=== PATIENT | male | born 1985 | race Caucasian/White ===

== ENCOUNTER 2016-09-04 13:06 | Day surgery (SDC) | payer BC ==
[~2016-09-04 13:06] MED LIST: DIPHENHYDRAMINE HCL 50 MG/ML VIAL ONE; EPINEPHRINE INJ 1 MG/10 ML DISP.SYRIN ONE; FLUMAZENIL INJ 0.5 MG/5 ML VIAL IV ONE; GLUCAGON,HUMAN RECOMB 1 MG INJ ONE; MIDAZOLAM 2 MG/2 ML INJ ONE; NALOXONE HCL INJ/PF 0.4 MG/1 ML SDV ONE; ONDANSETRON HCL INJ/PF 4 MG/2 ML SDV ONE; PROMETHAZINE HCL INJ 25 MG/1 ML VIAL ONE
[2016-09-04] MEDS: MIDAZOLAM 2 MG/2 ML INJ ONE ×2 (13:32→13:39)
[2016-09-04] MEDS: FENTANYL CITRATE INJ/PF 100 MCG/2 ML AMPUL ONE ×3 (13:34→13:41)
--- NOTE | 2016-09-04 13:46 | Operative Report ---
Operative Report DATE OF SURGERY: 09/04/16 Operative Report: The risks benefits and alternatives of the procedure explained to the patient in detail and informed consent is obtained that GIF Olympus video scope was inserted into the patient's mouth and hypopharynx the esophagus is identified intubated and insufflated the scope was then advanced through the esophagus stomach and duodenum retroflexion maneuver is done the esophagus stomach and first and second portions of the duodenum examined PREOPERATIVE DIAGNOSIS: Dysphagia POSTOPERATIVE DIAGNOSIS: Esophageal rings and furrows. Esophageal ulcer, stricture. Hiatal hernia. Gastritis OPERATION: EGD with biopsy SURGEON: SU YEE ANESTHESIA: Moderate Sedation - 4 mg of Versed, 125 g of fentanyl TISSUE REMOVED OR ALTERED: Gastric specimens, esophageal specimens COMPLICATIONS: None. ESTIMATED BLOOD LOSS: none. INTRAOPERATIVE FINDINGS: Described above. PROCEDURE: Patient tolerated the procedure well. No immediate postprocedure complications are noted. Patient is discharged in good condition. Discharge date 09/04/2016 Discharge diet: Regular. Discharge activity: Regular. Follow-up in 2-3 weeks We'll await on biopsies Patient is instructed to call the office or proceed to the emergency room after any further problems or questions
[2016-09-04 15:01] VITALS: BP 118/75
== END 2016-09-04 15:00 | disposition home or self-care (01) ==
LOC: END 13:06
PROVIDERS: ATTEND Internal Medicine Gastroenterology
PROC: 0DB58ZX Excision of Esophagus, Via Natural or Artificial Opening Endoscopic, Diagnostic (ICD-10-PCS; 2016-09-04)
PROC: 0DB68ZX Excision of Stomach, Via Natural or Artificial Opening Endoscopic, Diagnostic (ICD-10-PCS; principal; 2016-09-04 13:30)
DX: K22.10 Ulcer of esophagus without bleeding (principal); K22.2 Esophageal obstruction; R13.10 Dysphagia, unspecified; K21.9 Gastro-esophageal reflux disease without esophagitis; K44.9 Diaphragmatic hernia without obstruction or gangrene; K29.50 Unspecified chronic gastritis without bleeding; Z79.899 Other long term (current) drug therapy; Z88.6 Allergy status to analgesic agent
CPT/HCPCS: 43239; 88342 ×2; 88305 ×2; J2250; J3010; J0171; J1200; J1610; J2310; J2405; J2550; J3490

== ENCOUNTER → 2016-12-05 | Outpatient (CLI) | payer BC ==
[2016-12-09 07:08] LABS: ROCKY MTN SPOTTED FEV IGG EIA Negative (Negative)
[2016-12-09 11:39] LABS: F026-IGE PORK <0.10 kU/L (Class 0); F027-IGE BEEF <0.10 kU/L (Class 0)
[2016-12-09 11:43] LABS: F083-IGE CHICKEN MEAT <0.10 kU/L (Class 0)
== END ==
LOC: OD 09:18
PROVIDERS: ATTEND Student in an Organized Health Care Education/Training Program
DX: T14.8 Other injury of unspecified body region (principal); W57.XXXA Bitten or stung by nonvenomous insect and other nonvenomous arthropods, initial encounter; Z91.018 Allergy to other foods
CPT/HCPCS: 36415; 86003; 86757

== ENCOUNTER → 2017-01-15 | Outpatient (CLI) | payer BC ==
[2017-01-17 09:47] LABS: ROCKY MTN SPOTTED FEV IGG EIA Negative (Negative)
== END ==
LOC: OD 09:44
PROVIDERS: ATTEND Student in an Organized Health Care Education/Training Program
DX: A77.0 Spotted fever due to Rickettsia rickettsii (principal)
CPT/HCPCS: 36415; 86757

== ENCOUNTER 2018-05-26 12:06 | Emergency (ER) | payer BC ==
[2018-05-26] MEDS ORDERED: ONDANSETRON 4 MG TAB.RAPDIS PO ONE (12:12)
[2018-05-26 12:29] LABS: ABSOLUTE BASOPHILS # (AUTO) 0.1 10^3/uL (0.0-0.2); ABSOLUTE EOSINOPHILS # (AUTO) 0.2 10^3/uL (0.0-0.6); ABSOLUTE LYMPHOCYTES (AUTO) 5.2 10^3/uL (0.5-4.7); ABSOLUTE NEUT (AUTO) 4.7 10^3/uL (1.7-8.2); BASOPHILS % (AUTO) 0.7 % (0-2); EOSINOPHILS % (AUTO) 1.5 % (0-6); HEMATOCRIT 45.5 % (37.9-51.0); HEMOGLOBIN 15.7 g/dL (13.5-17.0); LYMPHOCYTES % (AUTO) 46.9 % (13-45); MEAN CORPUSCULAR HEMOGLOBIN 29.3 pg (27.0-33.4); MEAN CORPUSCULAR HGB CONC 34.5 g/dL (32.0-36.0); MEAN CORPUSCULAR VOLUME 85 fl (80-97); MONOCYTES % (AUTO) 8.6 % (3-13); PLATELET COUNT 315 10^3/uL (150-450); RED BLOOD COUNT 5.36 10^6/uL (4.35-5.55); RED CELL DISTRIBUTION WIDTH 13.2 % (11.5-14.0); SEGMENTED NEUTROPHILS % (AUTO) 42.3 % (42-78); TOTAL CELLS COUNTED % (AUTO) 100 %; WHITE BLOOD COUNT 11.1 10^3/uL (4.0-10.5)
--- NOTE | 2018-05-26 12:38 | ER Document Report ---
ED General - General Chief Complaint: Syncope Stated Complaint: POSSIBLE SYNCOPE Time Seen by Provider: 05/26/18 12:10 Mode of Arrival: Ambulatory Information source: Patient Notes: Patient says that he was fixing his belt when he pulled his nail back. Had severe pain in the 3rd digit on the L hand. Began feeling nauseated. Was noticed to be pale, diaphoretic, and lightheaded. Near syncopal episode. Patient denies any medical problems. Not on any medications. TRAVEL OUTSIDE OF THE [place] IN LAST 30 DAYS: No - HPI Onset: Just prior to arrival Onset/Duration: Sudden Quality of pain: Sharp Severity: Mild Associated symptoms: Nausea Exacerbated by: Denies Relieved by: Denies Similar symptoms previously: No Recently seen / treated by doctor: No - Related Data Allergies/Adverse Reactions: Beef Containing Products Allergy (Intermediate, Verified 09/04/16 13:10) Generalized rash ibuprofen Allergy (Intermediate, Verified 09/04/16 13:10) Generalized rash milk Allergy (Intermediate, Verified 09/04/16 13:10) Generalized rash NSAIDS (Non-Steroidal Anti-Inflamma Allergy (Intermediate, Verified 09/04/16 13: 10) Generalized rash shellfish derived Allergy (Intermediate, Verified 09/04/16 13:10) Generalized rash Past Medical History - Social History Smoking Status: Never Smoker Family History: Reviewed & Not Pertinent - Past Medical History Cardiac Medical History: Denies: Hx Coronary Artery Disease, Hx Heart Attack, Hx Hypertension Pulmonary Medical History: Denies: Hx Asthma, Hx Bronchitis, Hx COPD, Hx Pneumonia Neurological Medical History: Denies: Hx Cerebrovascular Accident, Hx Seizures Musculoskeletal Medical History: Denies Hx Arthritis Past Surgical History: Reports: Hx Appendectomy - Immunizations Hx Diphtheria, Pertussis, Tetanus Vaccination: Yes Review of Systems - Review of Systems Constitutional: No symptoms reported EENT: No symptoms reported Cardiovascular: No symptoms reported, Lightheaded Respiratory: No symptoms reported Gastrointestinal: Nausea Genitourinary: No symptoms reported Male Genitourinary: No symptoms reported Musculoskeletal: No symptoms reported Skin: No symptoms reported Hematologic/Lymphatic: No symptoms reported Neurological/Psychological: No symptoms reported -: Yes All other systems reviewed and negative Physical Exam - Vital signs Vitals: Pulse BP 71 126/83 H 05/26/18 12:53 05/26/18 12:53 - General Notes: PHYSICAL EXAMINATION: GENERAL: Well-appearing, well-nourished and in no acute distress. HEAD: Atraumatic, normocephalic. EYES: Pupils equal round and reactive to light, extraocular movements intact, sclera anicteric, conjunctiva are normal. ENT: Nares patent, oropharynx clear without exudates. Moist mucous membranes. NECK: Normal range of motion, supple without lymphadenopathy LUNGS: Breath sounds clear to auscultation bilaterally and equal. No wheezes rales or rhonchi. HEART: Regular rate and rhythm without murmurs ABDOMEN: Soft, nontender, nondistended abdomen. No guarding, no rebound. No masses appreciated. Musculoskeletal: Normal range of motion, no pitting or edema. No cyanosis. 3rd digit nail bent backward. Still attached. 2+ radial pulse. Neurovascular intact. NEUROLOGICAL: Cranial nerves grossly intact. Normal speech, normal gait. Normal sensory, motor exams PSYCH: Normal mood, normal affect. SKIN: Warm, Dry, normal turgor, no rashes or lesions noted. Course - Re-evaluation Re-evalutation: 05/26/18 12:35 EKG: Ventricular rate 67, GA interval 176, castration 90, QTc 418, normal sinus rhythm. No ST segment elevation. 05/26/18 14:28 Orthostatics are negative. Labs within normal limits. EKG is normal. XR shows soft tissue damage to the L 3rd finger. No fracture. Digital block done to the 3rd digit L hand. 4cc of lidocaine injected total. No complications. Patient tolerated procedure well. Finger nail pushed down and dressing applied. Patient neurovascular intact. I instructed patient to follow up with PCP this week, to take medication as directed, and to return for worsening symptoms. - Vital Signs Vital signs: Temp Pulse Resp BP Pulse Ox 71 126/83 H 05/26/18 12:53 05/26/18 12:53 - Laboratory Result Diagrams: 05/26/18 12:12 05/26/18 12:12 Laboratory results interpreted by me: 05/26/18 05/26/18 12:12 12:12 WBC 11.1 H Lymphocytes % 46.9 H Absolute Lymphocytes 5.2 H Glucose 113 H Discharge - Discharge Clinical Impression: Near syncope, Nail bed injury Condition: Good Disposition: HOME, SELF-CARE Instructions: Near Syncopal Episode ([facility]) Referrals: CRISTÓBAL NOEL DO [Primary Care Provider] - Follow up as needed
--- NOTE | 2018-05-26 12:41 | RADIOLOGY REPORT (SQ) ---
EXAM DESCRIPTION: HAND LEFT 3 VIEWS COMPLETED DATE/TIME: 05/26/2018 12:29 pm REASON FOR STUDY: trauma COMPARISON: None. EXAM PARAMETERS: NUMBER OF VIEWS: Three views. TECHNIQUE: AP, lateral and oblique radiographic images acquired of the left hand. LIMITATIONS: None. FINDINGS: MINERALIZATION: Normal. BONES: No acute fracture or dislocation. No worrisome bone lesions. JOINTS: No effusions. SOFT TISSUES: Soft tissue injury of the distal 3rd finger. No foreign body. OTHER: No other significant finding. IMPRESSION: SOFT TISSUE INJURY OF THE DISTAL 3RD FINGER. NO BONY FINDINGS. TECHNICAL DOCUMENTATION: JOB ID: [id number] [employer]- All Rights Reserved Reading location - IP/workstation name: [email or web address]
[2018-05-26 13:26] LABS: ALANINE AMINOTRANSFERASE 35 U/L (21-72); ALBUMIN 4.5 g/dL (3.5-5.0); ALKALINE PHOSPHATASE 58 U/L (38-126); ANION GAP 12 (5-19); ASPARTATE AMINO TRANSFERASE 34 U/L (17-59); BILIRUBIN,DIRECT 0.2 mg/dL (0.0-0.4); BILIRUBIN,TOTAL 0.7 mg/dL (0.2-1.3); BLOOD UREA NITROGEN 11 mg/dL (7-20); CALCIUM 9.8 mg/dL (8.4-10.2); CARBON DIOXIDE 27 mmol/L (22-30); CHLORIDE 101 mmol/L (98-107); GLUCOSE 113 mg/dL (75-110); POTASSIUM 3.9 mmol/L (3.6-5.0); SODIUM 140.4 mmol/L (137-145); TOTAL PROTEIN 7.5 g/dL (6.3-8.2)
[2018-05-26] MEDS ORDERED: LIDOCAINE 1% INJ-PF (10 MG/ML) 30 ML SDV INJ ONE (13:41)
[2018-05-26 14:45] VITALS: BP 121/78
--- NOTE | 2018-05-26 19:22 | EKG REPORT ---
SEVERITY:- NORMAL ECG - SINUS RHYTHM : Confirmed by: Tania Ziegler MD 26-May-2018 19:21:29
== END 2018-05-26 14:45 | disposition home or self-care (01) ==
LOC: ER 12:06
DX: R55 Syncope and collapse (principal); S69.92XA Unspecified injury of left wrist, hand and finger(s), initial encounter; X58.XXXA Exposure to other specified factors, initial encounter; R11.0 Nausea; Z91.018 Allergy to other foods; Z88.6 Allergy status to analgesic agent; Z91.011 Allergy to milk products; Z88.8 Allergy status to other drugs, medicaments and biological substances; Z91.013 Allergy to seafood
CPT/HCPCS: 93005; 99284; 36415; 85025; 80053; 73130; 93010; 64450; S0119; J3490